=== PATIENT | female | born 1945 | race Caucasian/White ===

== ENCOUNTER 2018-04-11 05:25 | Day surgery (SDC) | payer MEDICARE ==
[2018-04-10 15:58] LABS: HEMATOCRIT 39.1 % (36.0-48.0); HEMOGLOBIN 12.7 g/dL (12-16); MCH 28.7 pg (26.0-34.0); MCHC 32.5 g/dL (31.0-37.0); MCV 88.5 fL (80.0-100.0); MEAN PLATELET VOLUME 11.1 fL (7.4-10.4); RBC 4.42 10x6/uL (4.00-5.40); RDW 14.1 % (11.5-14.5); WBC 5.4 10x3/uL (4.8-10.8)
[2018-04-10 16:18] LABS: ANION GAP 10.4 mmol/L (8-16); CALCIUM 9.2 mg/dL (8.5-10.1); CARBON DIOXIDE 31.9 mmol/L (21.0-32.0); CREATININE - SERUM 1.2 mg/dL (0.6-1.3); POTASSIUM - SERUM 4.3 mmol/L (3.5-5.1)
[~2018-04-11] VITALS: Ht 157.5 cm; Wt 90.9 kg
--- NOTE | ~2018-04-11 | OP ---
PATIENT NAME: ESTELLE PAEZ MEDICAL RECORD: [id number] :49 LOCATION:[facility] ADMISSION DATE: SURGEON: REBEL WEINER MD DATE OF OPERATION: 04/11/2018 PREOPERATIVE DIAGNOSES: Cervical radiculopathy secondary to osteophyte formation and disc herniation. POSTOPERATIVE DIAGNOSES: Cervical radiculopathy secondary to osteophyte formation and disc herniation. PROCEDURE: Anterior cervical discectomy and fusion with Zavation anterior cervical plate and screws, PEEK interbody cage, Jaqui bone allograft with bone stem cells, removal of osteophytes. PRIMARY CARE DOCTOR: Kojo Whitman MD DESCRIPTION OF TECHNIQUE: After induction of general endotracheal anesthesia, the patient was positioned supine on the operating table. Neck was prepped and draped in usual sterile fashion. Fluoroscopic x-ray and freer localized the disc space. A transverse skin incision was carried out from the midline to the sternocleidomastoid muscle. The platysma was divided with Bovie cautery. Using blunt and sharp dissection with Metzenbaum scissors, I proceeded in avascular plane medial to the carotid sheath. The disc space was identified. The longus colli muscles were elevated from the vertebral bodies. Self-retaining retractors placed deep to the longus colli muscles. Mcgehee distracting pins were placed in the bodies of above and below the disc space. Disc space was incised with #11 blade. Disc material was removed with pituitary rongeurs and curettes. Osteophytes drilled away posteriorly under microscope illumination. The posterior longitudinal ligament was removed with Cloward rongeurs. Following this, the dura was decompressed well. A PEEK interbody cage was placed in the disc space under distraction. Prior to this, it was filled with Jaqui bone allograft with stem cells and a separate anterior cervical plate was used to span the interspace. A 14-mm screws placed in the vertebral bodies above and below the interspace and 16 mm plate was used to span the interspace. Locking cams were tightened down over screw heads. Good position of the hardware was confirmed with fluoroscopic x-ray. Meticulous hemostasis was maintained throughout the wound. The wound was irrigated with copious amounts of Ancef irrigant solution. The platysma and subdermal layer closed with interrupted 3-0 Vicryl suture. The skin was reapproximated with Steri-Strips and benzoin. Sterile dressing was applied to the wound. The patient was awakened in good condition and taken to recovery. All counts were reported as correct. Estimated blood loss was minimal. TRANSINT:[id number] Voice Confirmation ID: [id number] DOCUMENT ID: [id number] REEBL WEINER MD at 1429 CC: [id number] DICTATION DATE: 04/17/18 0549 [employer] TECHNICIAN: 04/17/18 1231 [facility] [place] 04/12/[address] [id number]
[~2018-04-11 05:25] MED LIST: ATIVAN0.5 MG PO; BENTYL10 MG PO; CALCIUM 500 + D1 TAB PO; CELEXA40 MG PO; COZAAR100 MG PO; FUROSEMIDE20 MG PO; GLUCOPHAGE1000 MG PO; HYDROCODONE-APA1 TAB PO; LANTUS INSULIN10 ML SC; LEVOTHYROXINE50 MCG PO; LIPITOR10 MG PO; LUMIGAN 0.01%2.5 ML EACH EYE; METOPROLOL TAR100 M1 PO; MULTIPLE VITAMI1 TA1 PO; NEURONTIN 300300 MG PO; PREVACID15 MG PO
[2018-04-11 06:13] VITALS: BP 160/95; BMI 36.6
[2018-04-11 10:37] VITALS: BP 141/49
[2018-04-11 11:02] VITALS: BP 141/49; Ht 157.5 cm; Wt 90.9 kg
[2018-04-11 15:57] VITALS: BP 131/56
[2018-04-11 19:15] VITALS: BP 177/66
[2018-04-11 20:00] VITALS: BP 162/63
[2018-04-12] VITALS: BP 138/58
[2018-04-12 04:01] VITALS: BP 133/55
[2018-04-12 08:34] VITALS: BP 157/58
== END 2018-04-12 12:07 | disposition home or self-care (01) ==
LOC: D.MS 05:25 → D.OPS 05:25 → D.PAN 07:30 → D.MS 10:15 → D.OPS 10:45
PROVIDERS: Anesthesiology
DX: M50.10 Cervical disc disorder with radiculopathy, unspecified cervical region (principal); M25.78 Osteophyte, vertebrae; Z01.812 Encounter for preprocedural laboratory examination